=== PATIENT | male | born 1965 | race African-American/Black ===

== ENCOUNTER 2022-04-12 12:14 | Emergency (ER) | payer SELFPAY ==
[~2022-04-12] VITALS: Ht 180.3 cm; Wt 79.4 kg
[2022-04-12 12:15] VITALS: BP_SYST 153
--- NOTE | 2022-04-12 12:22 | NUR ---
BROUGHT IN BY [facility] AND TRIAGED, PT TO WAITING ROOM TO WAIT FOR ER BED AVAILABILITY
[2022-04-12 12:47] LABS: BASOPHILS % (AUTO) 0.2 % (0.0-2.0); EOSINOPHILS % (AUTO) 0.6 % (0.0-4.0); HEMATOCRIT 37.8 % (36-54); LYMPHOCYTES # (AUTO) 2.5 K/uL (1.0-5.5); LYMPHOCYTES % (AUTO) 44.2 % (20.5-51.5); MEAN CORPUSCULAR HEMOGLOBIN 34 pg (27-31); MEAN CORPUSCULAR HGB CONC 35 % (32-36); MEAN CORPUSCULAR VOLUME 98 fL (79.0-98.0); MONOCYTES # (AUTO) 0.6 K/uL (0.0-1.0); MONOCYTES % (AUTO) 9.8 % (1.7-9.3); NEUTROPHILS # (AUTO) 2.6 K/uL (1.8-7.7); NEUTROPHILS % (AUTO) 45.2 % (40.0-70.0); PLATELET COUNT (AUTO) 192 K/uL (130-430); RED BLOOD CELL COUNT(AUTO) 3.84 MIL/uL (4.2-6.2); WHITE BLOOD COUNT (AUTO) 5.7 K/uL (4.8-10.8)
[2022-04-12 13:03] LABS: CALCIUM 9.6 mg/dL (8.4-11.0); CREATININE 1.12 mg/dL (0.55-1.30); POTASSIUM 3.8 mmol/L (3.5-5.1)
[2022-04-12 13:09] LABS: TOTAL BILIRUBIN 1.2 mg/dL (0.0-1.0)
--- NOTE | 2022-04-12 13:30 | NUR ---
patient brought to ER hallway bed by nurse
[2022-04-12 14:53] LABS: CLARITY/URINE CLEAR (CLEAR); COLOR,URINE YELLOW (YELLOW)
[2022-04-12 14:54] LABS: BILIRUBIN,URINE NEGATIVE (NEGATIVE); BLOOD, URINE NEGATIVE (NEGATIVE); GLUCOSE,URINE NEGATIVE (NEGATIVE); KETONES,URINE NEGATIVE (NEGATIVE); LEUKOCYTE ESTERASE ,URINE NEGATIVE (NEGATIVE); NITRITE, URINE NEGATIVE (NEGATIVE); PH,URINE 6.5 (5.0-8.0); PROTEIN URINE NEGATIVE (NEGATIVE)
--- NOTE | 2022-04-12 15:00 | NUR ---
Pt [id number] presents from BLS CC abdominal pain. Pt denies NVD, Pt denies pain. Pt states homelessness seeking resources.
[2022-04-12 15:54] LABS: BARBITURATE, URINE NEGATIVE (NEG <=200); BENZODIAZEPINE, URINE NEGATIVE (NEG <=150); CANNABINOID, URINE NEGATIVE (NEG <=50); COCAINE, URINE NEGATIVE (NEG <=150); METHAMPHETAMINES SCREEN,URINE POSITIVE (NEG <=500); OPIATE, URINE NEGATIVE (NEG <=100); PHENCYCLIDINE SCREEN,URINE NEGATIVE (NEG <=25); UR TRICYCLIC ANTIDEPRESSANTS NEGATIVE (NEG <=300); URINE AMPHETAMINE POSITIVE (NEG <=500); URINE METHADONE NEGATIVE (NEG <=200); URINE OXYCODONE SCREEN NEGATIVE (NEG <=100); URINE PROPOXYPHENE SCREEN NEGATIVE (NEG <=300)
--- NOTE | 2022-04-12 16:15 | NUR ---
ER Dr.De rangel at bedside examining patient.
[2022-04-12 17:12] VITALS: BP_SYST 153
[2022-04-12 17:12] LABS: CHOLESTEROL 237 mg/dL (<200); HDL CHOLESTEROL 76 mg/dL (>45); LDL CHOLESTEROL 139 mg/dL (<100); TRIGLYCERIDES 125 mg/dL (30-150)
--- NOTE | 2022-04-12 17:16 | NUR ---
Patient given written and verbal discharge instructions and verbalizes understanding. ER MD discussed with patient the results and treatment provided. Patient in stable condition. ID arm band removed. Opportunity for questions provided and answered. Medication side effect fact sheet provided. Retirement list provided and transportation voucher.
[2022-04-12 17:43] LABS: ACETAMINOPHEN < 1 ug/mL (1-30); ALCOHOL, BLOOD < 3 mg/dL (<10)
== END 2022-04-12 17:16 | disposition home or self-care (01) ==
LOC: SED 12:14
DX: R10.9 Unspecified abdominal pain (principal); R19.7 Diarrhea, unspecified; F15.90 Other stimulant use, unspecified, uncomplicated; I10 Essential (primary) hypertension; Z88.8 Allergy status to other drugs, medicaments and biological substances; Z79.899 Other long term (current) drug therapy
CPT/HCPCS: 99283; 80061; 80307; 80053; 83690; 85025; 87086; 36415; 83036; 81003; G0482; G0480; G0481